=== PATIENT | male | born 1945 | race Caucasian/White ===

== ENCOUNTER 2017-06-07 01:33 | Emergency (ER) | payer SELFPAY ==
[~2017-06-07] VITALS: Ht 170.2 cm; Wt 84.0 kg
[2017-06-07 01:50] VITALS: BP 139/72; PULSE 85; RESP 16; TEMP 98; O2SAT 97
== END 2017-06-07 02:15 | disposition left against medical advice (07) ==
LOC: NED 02:10
DX: I48.91 Unspecified atrial fibrillation (principal); Z53.21 Procedure and treatment not carried out due to patient leaving prior to being seen by health care provider
CPT/HCPCS: 99281

== ENCOUNTER 2017-07-07 01:22 | Emergency (ER) | payer OTHER ==
[~2017-07-07] VITALS: Ht 170.2 cm; Wt 85.0 kg
[2017-07-07 01:26] VITALS: BP 163/77; PULSE 80; RESP 18; TEMP 97.9; O2SAT 99
[2017-07-07 02:00] VITALS: RESP 16; O2SAT 99
--- NOTE | 2017-07-07 02:01 | PD ---
HPI Chief Complaint: Tingling to left hand and left foot Time Seen by Provider: 01:58 Travel History International Travel<30 days: No Contact w/Intl Traveler<30days: No Traveled to known affect area: No History of Present Illness HPI The patient started experiencing some left hand and left foot tingling and numbness that he has been feeling since earlier in the morning. He contacted the [facility] who recommended that he come to the ER. The patient at no point had any chest pain, shortness of breath, or diaphoresis. The patient was simply concerned because he has been having these intermittently for about the last 2- 3 months. However he has forgotten to mention it to his primary care physician. The patient describes the numbness is more like a glove or sock distribution. Patient is able to ambulate even with the sensation, and does not lose his balance nor does he feel any lateralizing weakness. Patient also has clear speech and denies having any slurred speech at any point prior to this. Patient states that he has had the numbness intermittently occur with or without any chest discomfort. So he does not believe that they are related. However he does recall that the last time he felt chest discomfort was approximately at 9 PM today. Patient describes the chest sensation as a sharp sensation, lasted about 30 seconds, nonradiating, no shortness of breath no sweating and resolve spontaneously on its own. 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, hypertension, diabetes PFSH Past Medical History Hx Anticoagulant Therapy: Yes (Xarelto) Atrial Fibrillation: Yes Cardiac Catheterization: Yes Cardiovascular Problems: Yes (A-fib, stent x2, MIx1, HTN) Coronary Artery Disease: Yes Developmental Delay: Yes Diabetes: Yes (Metformin) Patient Takes Glucophage: Yes (07/06/2017 2200) Diminished Hearing: No Hypertension: Yes Neurologic: Yes (sciatica) Tetanus Vaccination: < 5 Years Influenza Vaccination: Yes Past Surgical History Coronary Stent: Yes (x2) Joint Replacement: Yes (Bilat Knee replacement) Social History Alcohol Use: No Tobacco Use: No Substance Use: No Allergies-Medications (Allergen,Severity, Reaction): Coded Allergies: Penicillins (Verified Allergy, Unknown, 07/07/17) gabapentin (Verified Allergy, Unknown, 07/07/17) Uncoded Allergies: prosazin (Allergy, Severe, Confusion, 06/07/17) Review of Systems General / Constitutional: No: Fever Eyes: No: Visual changes HENT: No: Headaches Cardiovascular: Positive: Chest Pain or Discomfort Respiratory: No: Shortness of Breath Gastrointestinal: No: Abdominal Pain Genitourinary: No: Dysuria Musculoskeletal: No: Pain Skin: No Rash Neurologic: No: Weakness Psychiatric: No: Depression Endocrine: No: Polydipsia Hematologic/Lymphatic: No: Easy Bruising Physical Exam Narrative GENERAL: Patient is very pleasantly providing medical history and is able to follow directions very well SKIN: Warm and dry. HEAD: Atraumatic. Normocephalic. EYES: Pupils equal and round. No scleral icterus. No injection or drainage. ENT: No nasal bleeding or discharge. Mucous membranes pink and moist. NECK: Trachea midline. No JVD. CARDIOVASCULAR: Non-tachycardic rate and irregularly irregular rhythm. RESPIRATORY: No accessory muscle use. Clear to auscultation. Breath sounds equal bilaterally. GASTROINTESTINAL: Abdomen soft, non-tender, nondistended. MUSCULOSKELETAL: Extremities without clubbing, cyanosis, or edema. No obvious deformities. NEUROLOGICAL: Awake and alert. No obvious cranial nerve deficits. Motor grossly within normal limits. Five out of 5 muscle strength in the arms and legs. Normal speech. PSYCHIATRIC: Appropriate mood and affect; insight and judgment normal. Data Data Last Documented VS Vital Signs Date Time Temp Pulse Resp B/P (MAP) Pulse Ox O2 Delivery O2 Flow Rate FiO2 07/07/17 02:00 99 Nasal Cannula 2.00 07/07/17 02:00 16 07/07/17 01:26 97.9 80 163/77 (105) Orders Orders Electrocardiogram (07/07/17 02:01) B-Type Natriuretic Peptide (07/07/17 02:01) Ckmb (Isoenzyme) Profile (07/07/17 02:01) Complete Blood Count With Diff (07/07/17 02:01) Comprehensive Metabolic Panel (07/07/17 02:01) Prothrombin Time / Inr (Pt) (07/07/17 02:01) Act Partial Throm Time (Ptt) (07/07/17 02:01) Troponin I (07/07/17 02:01) Lipase (07/07/17 02:01) Chest, Single Ap (07/07/17 02:01) Ecg Monitoring (07/07/17 02:01) Bilateral Bp Monitoring (07/07/17 02:01) Iv Access Insert/Monitor (07/07/17 02:01) Oximetry (07/07/17 02:01) Oxygen Administration (07/07/17 02:01) Sodium Chloride 0.9% Flush (Ns Flush) (07/07/17 02:15) Ct Pulmonary Angiogram (07/07/17 02:01) CKMB (07/07/17 02:00) CKMB% (07/07/17 02:00) Ct Brain W/O Iv Contrast(Rout) (07/07/17 02:42) Iohexol 350 Inj (Omnipaque 350 Inj) (07/07/17 03:16) Ckmb (Isoenzyme) Profile (07/07/17 05:00) Troponin I (07/07/17 05:00) CKMB (07/07/17 04:50) CKMB% (07/07/17 04:50) Labs Laboratory Tests Test 07/07/17 02:00 07/07/17 04:50 White Blood Count 6.2 TH/MM3 Red Blood Count 4.39 MIL/MM3 Hemoglobin 13.8 GM/DL Hematocrit 39.3 % Mean Corpuscular Volume 89.4 FL Mean Corpuscular Hemoglobin 31.5 PG Mean Corpuscular Hemoglobin Concent 35.2 % Red Cell Distribution Width 13.0 % Platelet Count 171 TH/MM3 Mean Platelet Volume 9.4 FL Neutrophils (%) (Auto) 55.2 % Lymphocytes (%) (Auto) 31.8 % Monocytes (%) (Auto) 7.7 % Eosinophils (%) (Auto) 2.8 % Basophils (%) (Auto) 2.5 % Neutrophils # (Auto) 3.4 TH/MM3 Lymphocytes # (Auto) 2.0 TH/MM3 Monocytes # (Auto) 0.5 TH/MM3 Eosinophils # (Auto) 0.2 TH/MM3 Basophils # (Auto) 0.2 TH/MM3 CBC Comment DIFF FINAL Differential Comment Prothrombin Time 13.0 SEC Prothromb Time International Ratio 1.3 RATIO Activated Partial Thromboplast Time 31.7 SEC Blood Urea Nitrogen 11 MG/DL Creatinine 0.85 MG/DL Random Glucose 107 MG/DL Total Protein 7.1 GM/DL Albumin 4.0 GM/DL Calcium Level 9.2 MG/DL Alkaline Phosphatase 74 U/L Aspartate Amino Transf (AST/SGOT) 23 U/L Alanine Aminotransferase (ALT/SGPT) 32 U/L Total Bilirubin 0.3 MG/DL Sodium Level 139 MEQ/L Potassium Level 3.6 MEQ/L Chloride Level 102 MEQ/L Carbon Dioxide Level 27.6 MEQ/L Anion Gap 9 MEQ/L Estimat Glomerular Filtration Rate 88 ML/MIN Total Creatine Kinase 168 U/L 136 U/L Creatine Kinase MB 4.2 NG/ML 3.4 NG/ML Troponin I LESS THAN 0.02 NG/ML LESS THAN 0.02 NG/ML B-Type Natriuretic Peptide 23 PG/ML Lipase 174 U/L MDM Medical Decision Making Medical Screen Exam Complete: Yes Emergency Medical Condition: Yes Medical Record Reviewed: Yes Interpretation(s) Patient is in sinus rhythm with sinus arrhythmia, 68 bpm, no evidence of any ST elevation AK pattern noted. Differential Diagnosis Intracranial hemorrhage versus paresthesias (most likely secondary to diabetic neuropathy) versus STEMI versus pneumonia versus pleural effusion versus pneumothorax versus PE Narrative Course CBC does not show any evidence of leukocytosis, no anemia, normal platelet count , and no left shift Coagulation profile should reveals a PT of 13, INR 1.3 and a PTT of 31.7 Chemistry shows normal electrolytes, normal kidney pancreatic functions and liver functions. Beta natruretic peptide is 23 and negative However the patient's CK-MB was slightly elevated at 4.2 troponin is less than 0.02 Delta cardiac enzymes show CK-MB is 3.4 which is normal, and a troponin remains less than 0.02, this delta troponin note that the enzymes are consistent with negative non-STEMI at this present time based on the timing of the chest pain that was felt over 12 hours ago prior to the 2 enzymes performed. Chest x-ray read by radiologist as no acute cardiopulmonary process Head CT read by radiologist as negative exam no acute intracranial process to explain symptoms CT Angio-Seal read as lungs are clear, no pulmonary embolus, no pericardial effusion, some mild asymmetric gynecomastia on the right is noted. As well as atherosclerotic calcifications of the coronary arteries Diagnosis Primary Impression: Paresthesia Admitting Information Admitting Physician Requests: Observation Patient Instructions: General Instructions, Paresthesia (ED) Additional Instructions: [facility] so that [facility] can [facility] and also set up a referral to neurology for further investigation of your symptoms. Disposition: 01 DISCHARGE HOME Condition: Stable Anup Cao MD Jul 07, 2017 02:01
[2017-07-07] MEDS ORDERED: SODIUM CHLORIDE 0.9% FLUSH 10 ML FLUSH IVF PRN (02:15)
[2017-07-07 02:20] LABS: AUTOMATED NEUTROPHIL # 3.4 TH/MM3 (1.8-7.7); BASOPHIL # 0.2 TH/MM3 (0-0.2); BASOPHIL % 2.5 % (0.0-2.0); EOSINOPHIL # 0.2 TH/MM3 (0-0.4); EOSINOPHIL % 2.8 % (0.0-4.0); HEMATOCRIT 39.3 % (39.0-51.0); HEMOGLOBIN 13.8 GM/DL (13.0-17.0); LYMPH % 31.8 % (9.0-44.0); MEAN CELL VOLUME 89.4 FL (80.0-100.0); MEAN CORPUSCULAR HEMOGLOBIN 31.5 PG (27.0-34.0); MEAN CORPUSCULAR HGB CONC 35.2 % (32.0-36.0); MEAN PLATELET VOLUME 9.4 FL (7.0-11.0); MONO % 7.7 % (0.0-8.0); MONOCYTE # 0.5 TH/MM3 (0-0.9); NEUT % 55.2 % (16.0-70.0); PLATELET COUNT 171 TH/MM3 (150-450); RED BLOOD COUNT 4.39 MIL/MM3 (4.50-5.90); WHITE BLOOD COUNT 6.2 TH/MM3 (4.0-11.0)
[2017-07-07 02:30] LABS: INTERNATIONAL NORMALIZED RATIO 1.3 RATIO
[2017-07-07 02:36] LABS: ALT (GPT) 32 U/L (12-78); AST (GOT) 23 U/L (15-37); BICARBONATE 27.6 MEQ/L (21.0-32.0); BLOOD UREA NITROGEN 11 MG/DL (7-18); CALCIUM 9.2 MG/DL (8.5-10.1); CHLORIDE 102 MEQ/L (98-107); CREATININE 0.85 MG/DL (0.60-1.30); GLOMERULAR FILTRATION RATE 88 ML/MIN (>89); GLUCOSE,RANDOM 107 MG/DL (74-106); SODIUM (NA) 139 MEQ/L (136-145)
[2017-07-07 02:37] LABS: ALKALINE PHOSPHATASE 74 U/L (45-117); TOTAL BILIRUBIN ADULT 0.3 MG/DL (0.2-1.0); TOTAL PROTEIN 7.1 GM/DL (6.4-8.2); TROPONIN I LESS THAN 0.02 NG/ML (0.02-0.05)
--- NOTE | 2017-07-07 02:52 | RADRPT ---
EXAM DATE/TIME: 07/07/2017 02:04 [facility] COMPARISON: No previous studies available for comparison. INDICATIONS : Short of breath, left side chest pain. MEDICAL HISTORY : None. SURGICAL HISTORY : None. ENCOUNTER: Initial ACUITY: 1 day PAIN SCORE: 0/10 LOCATION: Bilateral chest FINDINGS: A single view of the chest demonstrates the lungs to be symmetrically aerated without evidence of mas s, infiltrate or effusion. The cardiomediastinal contours are unremarkable. Osseous structures are intact. CONCLUSION: No acute cardiopulmonary process. Christiano Kingston MD on July 07, 2017 at 2:49 Board Certified Radiologist. This report was verified electronically.
[2017-07-07] MEDS ORDERED: IOHEXOL 350 MG/ML 10 ML VIAL (for RAD DIAG) IVCONTRAST ONE (03:16)
--- NOTE | 2017-07-07 03:24 | RADRPT ---
EXAM DATE/TIME: 07/07/2017 03:11 [facility] COMPARISON: No previous studies available for comparison. INDICATIONS : Left sided weakness. RADIATION DOSE: 56.35 CTDIvol (mGy) MEDICAL HISTORY : Cardiovascular disease. Hypertension. Diabetes mellitus type 2. SURGICAL HISTORY : Coronary artery stent. Total knee replacement, left.Total knee replacement, right. ENCOUNTER: Initial ACUITY: 1 day PAIN SCALE: 0/10 LOCATION: cranial TECHNIQUE: Multiple contiguous axial images were obtained of the head. Using automated exposure control and adj ustment of the mA and/or kV according to patient size, radiation dose was kept as low as reasonably a chievable to obtain optimal diagnostic quality images. DICOM format image data is available electro nically for review and comparison. FINDINGS: CEREBRUM: The ventricles are normal for age. No evidence of midline shift, mass lesion, hemorrhage or acute in farction. No extra-axial fluid collections are seen. POSTERIOR FOSSA: The cerebellum and brainstem are intact. The 4th ventricle is midline. The cerebellopontine angle i s unremarkable. EXTRACRANIAL: The visualized portion of the orbits is intact. SKULL: The calvaria is intact. No evidence of skull fracture. CONCLUSION: Negative exam. No acute intracranial process to explain current clinical symptoms. Christiano Kingston MD on July 07, 2017 at 3:21 Board Certified Radiologist. This report was verified electronically.
--- NOTE | 2017-07-07 04:06 | RADRPT ---
EXAM DATE/TIME: 07/07/2017 03:14 [facility] COMPARISON: No previous studies available for comparison. INDICATIONS : Chest pain. IV CONTRAST: 80 cc Omnipaque 350 (iohexol) IV RADIATION DOSE: 9.54 CTDIvol (mGy) MEDICAL HISTORY : Cardiovascular disease. Hypertension. Diabetes mellitus type 2. SURGICAL HISTORY : Coronary artery stent. Total knee replacement, left.Umbilical hernia repair. ENCOUNTER: Initial ACUITY: 1 day PAIN SCALE: 6/10 LOCATION: Bilateral chest TECHNIQUE: Volumetric scanning of the chest was performed using a pulmonary embolism protocol MIP images were re constructed. Using automated exposure control and adjustment of the mA and/or kV according to patien t size, radiation dose was kept as low as reasonably achievable to obtain optimal diagnostic quality images. DICOM format image data is available electronically for review and comparison. Follow-up recommendations for detected pulmonary nodules are based at a minimum on nodule size and pa tient risk factors according to Fleischner Society Guidelines. FINDINGS: PULMONARY ARTERIES: No filling defects are seen in the pulmonary arteries through the segmental level. LUNGS: There is no consolidation or pneumothorax . No concerning pulmonary nodule is visualized. PLEURAE: There is no pleural thickening or pleural effusion. MEDIASTINUM: There is good visualization of the great vessels of the middle mediastinum. No evidence of mediastin al or hilar adenopathy/mass. Coronary artery calcification. MUSCULOSKELETAL: Within normal limits for patient age. MISCELLANEOUS: The visualized upper abdominal organs demonstrate no acute abnormality. Asymmetric gynecomastia, righ t chest. CONCLUSION: 1. Lungs are clear. No pulmonary embolus. 2. Mild, asymmetric gynecomastia on the right. Atherosclerotic calcification of the coronary arteries . Christiano Kingston MD on July 07, 2017 at 4:00 Board Certified Radiologist. This report was verified electronically.
[2017-07-07 05:19] LABS: TROPONIN I LESS THAN 0.02 NG/ML (0.02-0.05)
--- NOTE | 2017-07-07 20:58 | EKG ---
Date Performed: 07/07/2017 Time Performed: 01:39:37 PTAGE: 71 years EKG: Sinus rhythm WITH MARKED SINUS ARRHYTHMIA MARKED LEFT AXIS DEVIATION PATTERN CONSISTENT WITH PULMONARY DISEASE AB NORMAL ECG NO PREVIOUS TRACING DOCTOR: Lorenzo Henderson Interpretating Date/Time 07/07/2017 20:57:14
== END 2017-07-07 06:01 | disposition home or self-care (01) ==
LOC: NEPE 01:22
DX: R20.2 Paresthesia of skin (principal); R07.9 Chest pain, unspecified; R94.31 Abnormal electrocardiogram [ECG] [EKG]; I10 Essential (primary) hypertension; I25.10 Atherosclerotic heart disease of native coronary artery without angina pectoris; I48.91 Unspecified atrial fibrillation; I25.2 Old myocardial infarction; E11.9 Type 2 diabetes mellitus without complications; Z95.5 Presence of coronary angioplasty implant and graft; Z88.0 Allergy status to penicillin; Z79.01 Long term (current) use of anticoagulants; Z79.84 Long term (current) use of oral hypoglycemic drugs
CPT/HCPCS: 70450; 71045; 71275; 80053; 82550; 82552; 83690; 83880; 84484; 85025; 85610; 85730; 93005; 99285; Q9967